=== PATIENT | female | born 1940 | race Two or more races ===

== ENCOUNTER 2025-01-25 16:48 | Emergency (ER) | payer MEDICAID, SELFPAY ==
[2025-01-25 16:49] VITALS: BMI 4639.8
[2025-01-25 17:57] VITALS: BP 153/68; PULSE 70; RESP 18; TEMP 36.7; O2SAT 95
--- NOTE | 2025-01-25 18:38 | XR_ITS ---
Examination: Tibia-Fibula, left , 2 views Technique: Tibia-fibula AP lateral 2 views Date and time of exam: January 25 20,025, 1901 hours INDICATIONS: Redness swelling and pain this week. FINDINGS: Severe osteopenia. No fracture. No cortical bone destruction. Soft tissue vascular calcification. IMPRESSION: No cortical bone destruction.
--- NOTE | 2025-01-25 18:38 | XR_ITS ---
Examination: CT brain head without contrast. 2-D sagittal coronal reconstructions Date and time of exam:January 25, 2025, 1853 hours, comparison June 16, 2005. INDICATIONS: Frequent falls with injury to the head, head pain CTDI: vol (mGy):46.7. DLP: (mGycm):958. Technique: Multiple CT axial sections of the brain have been obtained, 5 mm slice thickness. Contrast has not been administered. 2-D sagittal, coronal reconstructions have been obtained Low dose protocols were performed. One or more of the following dose reduction techniques were used; automated exposure control, adjustment of the mA and/or KV according to patient size, use of iterative reconstruction technique. Findings: No significant ventricular enlargement. Intra-axial or extra-axial hemorrhage density is not seen. No mass effect or midline shift Basal cisterns are not remarkable. Fourth ventricle is midline. Cranial vault intact. Chronic maxillary left sinusitis Impression: Negative for acute hemorrhage, mass effect or midline shift
--- NOTE | 2025-01-25 18:39 | XR_ITS ---
Examination: AP chest single view. TECHNIQUE: AP sitting portable chest single view. Date and time: January 25, 2025, 1908 hours INDICATIONS: Frequent falls this week. FINDINGS: Mild prominence left ventricle Lobulation left hemidiaphragm. No pneumothorax or pulmonary contusion. Prominent osteopenia. Clavicles ribs appear intact Impression : No pneumothorax or pulmonary contusion or hemothorax
--- NOTE | 2025-01-25 18:41 | PD.EDRME ---
Rapid Medical Screening Exam [facility] Arrival date/time: 01/25/25 16:48 84F with history of DM, afib, and HTN presents to ED with non-healing open wound on L lower leg for 2 weeks. Patient was put Keflex by PCP w/o improvement. Separately, patient has had frequent falls recently, but no obvious injuries. Chief Complaint: Skin/Abscess/Foreign Body Vital signs: Vital Signs Temperature 98.0 F 01/25/25 17:57 Pulse Rate 70 01/25/25 17:57 Respiratory Rate 18 01/25/25 17:57 Blood Pressure 153/68 H 01/25/25 17:57 Pulse Oximetry (%) 95 01/25/25 17:57 Oxygen Delivery Method Room Air 01/25/25 17:57
[2025-01-25 19:53] LABS: Sed Rate (ESR) 50 mm/hr (0-30)
[2025-01-25 19:56] LABS: Basophils # (Auto) 0.0 Thou/mm3 (0.0-0.2); Basophils % (Auto) 0 % (0-2.5); Eosinophils # (Auto) 0.0 Thou/mm3 (0.0-0.5); Eosinophils % (Auto) 0 % (0-10); Hematocrit 36.2 % (36.0-46.0); Hemoglobin 11.5 g/dL (12.0-16.0); Immature Granulocytes Auto 0.08 Thou/mm3 (0.00-0.00); Lymphocytes # (Auto) 1.3 Thou/mm3 (1.0-4.8); Lymphocytes % (Auto) 15 % (10-50); Mean Corpuscular HGB Conc 31.8 g/dl (31.0-37.0); Mean Corpuscular Hemoglobin 28.8 pg (25.0-35.0); Mean Corpuscular Volume 91 fL (80-100); Monocytes # (Auto) 0.4 Thou/mm3 (0.0-0.8); Monocytes % (Auto) 5 % (0-12); Neutrophils # (Auto) 6.6 Thou/mm3 (1.8-7.7); Neutrophils % (Auto) 78 % (37-80); Nucleated Red Blood Cell # 0.00 Thou/mm3 (0.00-0.00); Nucleated Red Blood Cell % 0 /100 WBC (0); Platelet Count 232 Thou/mm3 (140-440); RDW Standard Deviation 45.8 fL (36.4-46.3); Red Blood Count 4.00 Miln/mm3 (4.00-5.20); White Blood Count 8.4 Thou/mm3 (3.6-11.0)
[2025-01-25 20:21] LABS: Alanine Aminotransferase 25 U/L (10-49); Albumin, Serum 4.1 gm/dL (3.4-4.8); Albumin/Globulin Ratio 1.5 (1.2-2.2); Alkaline Phosphatase 124 U/L (46-116); Anion Gap 11 (7-16); Aspartate Amino Transferase 19 U/L (0-34); BUN/Creatinine Ratio 30 Ratio (12-20); Bilirubin,Total 0.3 mg/dL (0.3-1.2); Blood Urea Nitrogen 33 mg/dL (9-23); Calcium 9.8 mg/dL (8.3-10.6); Calcium (Corrected) 9.8 mg/dL (8.5-10.1); Carbon Dioxide 27.6 mMol/L (20.0-31.0); Chloride 104 mMol/L (98-107); Creatinine (Component) 1.1 mg/dL (0.6-1.3); Estimated Creatinine Clearance 30.8 mL/min (>60); Globulin 2.8 gm/dL (2.3-3.5); Glucose 224 mg/dL (74-106); Osmolality,Calculated 299 (275-295); Potassium 4.0 mMol/L (3.4-5.1); Sodium 143 mMol/L (136-145); Total Protein 6.9 gm/dL (5.7-8.2); eGFR 49 See Note
[2025-01-25 21:11] LABS: C-Reactive Protein 1.6 mg/dL (0.0-0.9)
--- NOTE | 2025-01-25 23:43 | PD.EDSKIN ---
ED Skin Abcess FB-RME/HPI General Chief complaint: Skin/Abscess/Foreign Body Stated complaint: WOUND LEFT LEG FOR 2 WEEKS Time Seen by Provider: 01/25/25 22:59 Arrival date/time: 01/25/25 16:48 RME / HPI RME / HPI narrative: 01/25/25 16:48 84F with history of DM, afib, and HTN presents to ED with non-healing open wound on L lower leg for 2 weeks. Patient was put Keflex by PCP w/o improvement. Separately, patient has had frequent falls recently, but no obvious injuries. DR. BOLTON MAIN ED EVALUATION: 84 y/o female with Hx of Type II DM presents with a non-healing open wound to the posterior left lower leg x 2 weeks. Patient hurt herself with her walker, causing the wound, then later had the wound picked at by chickens while outside. Patient is currently on Cephalexin. No other concerns or complaints expressed at this time. Related Data Home Medications ?Medication ?Instructions ?Recorded ?Confirmed docusate sodium 100 mg capsule 100 mg PO DAILY 11/15/20 11/15/20 ergocalciferol (vitamin D2) 1,250 1,250 mcg PO QWEEK 11/15/20 11/15/20 mcg (50,000 unit) capsule isosorbide mononitrate 30 mg 30 mg PO DAILY 11/15/20 11/15/20 tablet,extended release 24 hr lisinopril 40 mg tablet 40 mg PO DAILY 11/15/20 11/15/20 omeprazole 20 mg capsule,delayed 20 mg PO DAILY 11/15/20 11/15/20 release Previous Rx's ?Medication ?Instructions ?Recorded amoxicillin 875 mg-potassium 1 tab PO BID #5 tabs 11/20/20 clavulanate 125 mg tablet (Augmentin) aspirin 81 mg tablet,delayed 81 mg PO QDAY #30 tabs 11/20/20 release (Adult Low Dose Aspirin) sulfamethoxazole 800 1 tab PO BID #14 tabs 01/25/25 mg-trimethoprim 160 mg tablet (Bactrim DS) Allergies Allergy/AdvReac Type Severity Reaction Status Date / Time amlodipine Allergy Severe Rash Verified 01/25/25 16:52 Review of Systems Review of Systems Systems Reviewed: All systems reviewed, normal except as documented Past Medical History Past Medical History CARDIAC: Positive Cardiac Disorders and Hypertension RESPIRATORY: Positive Asthma MUSCULOSKELETAL: Positive Musculoskeletal Disorders and Arthritis ENT: Positive Deafness PSYCHO/SOCIAL: Positive Depression and Anxiety OTHER HISTORY: Positive Falls Family History FAMILY HISTORY: Positive Family Respiratory Disorders and Family Cancer Surgical History SURGICAL: Positive Hysterectomy ED Exam Narrative Physical exam: Generally patient is alert and in no obvious distress and [id number], heart regular rate and rhythm, lungs clear to auscultation equal bilaterally, abdomen soft nontender, extremities show 3+ pitting pedal edema from the feet up to the knees bilaterally. This is normal for the patient. To the posterior aspect of the left calf patient has a 3 to 4 cm circular moist wound with an erythematous border. Course Quality Measures none Orders Category Date Time Status CT head/brain wo con Stat Exams 01/25/25 18:38 Completed XR chest 1V portable Stat Exams 01/25/25 18:39 Completed XR tibia fibula LT 2V Stat Exams 01/25/25 18:38 Completed CBC Stat Lab 01/25/25 19:37 Completed CMP [Comprehensive Metabolic Panel] Stat Lab 01/25/25 19:37 Completed CRP [C-Reactive Protein] Stat Lab 01/25/25 19:37 Completed ESR [Sed Rate (ESR)] Stat Lab 01/25/25 19:37 Completed Vital Signs Vital signs: Vital Signs Temperature 98.0 F 01/25/25 17:57 Pulse Rate 70 01/25/25 17:57 Respiratory Rate 18 01/25/25 17:57 Blood Pressure 153/68 H 01/25/25 17:57 Pulse Oximetry (%) 95 01/25/25 17:57 Oxygen Delivery Method Room Air 01/25/25 17:57 Skin / Abscess / Foreign Body MDM Narrative MDM Narrative:: Scribe Attestation: I, Angela Morrison, am scribing for and in the presence of Dr. Bolton. Provider Notation: Although this document has been carefully reviewed, there may still be some phonetic and other typographical errors. These errors are purely grammatical due to imperfections in the software program and should not be construed in any way to? compromise the substance of the patient's medical care during this visit. Patient has been on cephalexin. I will add MRSA coverage with Bactrim. I interpreted all labs. X-ray of the left tibia and fibula was unremarkable. Patient data External records reviewed:: [facility] previous records (No recent ED records available for review.) Clinical information provided by:: patient and family (Daughter) Social determinants that could affect healthcare access:: none Patient has the following chronic illnesses:: Hypertension, Asthma, Arthritis, Deafness, Depression, Anxiety How is presenting disease/condition affected by chronic disease/condition?: exacerbated by Evaluation data The following diagnostics were reviewed and interpreted by me:: lab results and radiology exam(s) Lab and/or radiology exams considered but not ordered:: None Interpretation Summary: RADIOLOGY Chest X-Ray: FINDINGS: Mild prominence left ventricle Lobulation left hemidiaphragm. No pneumothorax or pulmonary contusion. Prominent osteopenia. Clavicles ribs appear intact Impression: No pneumothorax or pulmonary contusion or hemothorax Head/Brain CT: Findings: No significant ventricular enlargement. Intra-axial or extra-axial hemorrhage density is not seen. No mass effect or midline shift Basal cisterns are not remarkable. Fourth ventricle is midline. Cranial vault intact. Chronic maxillary left sinusitis Impression: Negative for acute hemorrhage, mass effect or midline shift Tiba/Fibula X-Ray: FINDINGS: Severe osteopenia. No fracture. No cortical bone destruction. Soft tissue vascular calcification. IMPRESSION: No cortical bone destruction. Medications / Prescriptions Medications or Prescriptions considered but not ordered:: None Medication administrations:: See above if any Consultations Consultation(s) initiated? (list below): No Diagnosis Skin/Abscess Differential Diagnosis: abscess of skin or subcutaneous tissue, viral exanthem, dermatophytosis, urticaria, herpes zoster, cellulitis, insect bites and contact dermatitis Most likely diagnosis given after review of the tests above:: None Admission Indicated Admission indicated?: not indicated Explain why admission is indicated or not indicated:: Patient does not meet admission criteria. Admission Request Was there a request for admission?: No Disposition Plan Disposition Plan: Discharge Discharge Attestation Discharge Attestation: The patient and all family members were given an opportunity to ask questions and understood the discharge instructions. Discharge instructions specifically effects, indications for sooner follow up or return to the emergency department, and the expected course of current diagnosis. Patient condition: Stable Discharge Plan Plan Patient Disposition: HOME (Self Care) Prescriptions/Referrals Prescriptions/Med Rec: New sulfamethoxazole-trimethoprim [Bactrim DS] 800-160 mg tablet 1 tab PO BID Qty: 14 0RF No Action docusate sodium 100 mg capsule 100 mg PO DAILY Patient Comments: TOME 1 C PSULA POR V A ORAL TODOS LOS D CUANDO SEA NECESARIO isosorbide mononitrate 30 mg tablet extended release 24 hr 30 mg PO DAILY Patient Comments: TOME ASHA TABLETA TODOS LOS D EN LA MA BARON ergocalciferol (vitamin D2) 1,250 mcg (50,000 unit) capsule 1,250 mcg PO QWEEK Patient Comments: TOME 1 C PSULA POR V A ORAL SEMANALMENTE lisinopril 40 mg tablet 40 mg PO DAILY Patient Comments: TOME ASHA TABLETA TODOS LOS D omeprazole 20 mg capsule,delayed release(DR/EC) 20 mg PO DAILY Patient Comments: TOME 1 C PSULA POR V A ORAL TODOS LOS D 30 MINUTOS ANTES DE DESAYUNO aspirin [Adult Low Dose Aspirin] 81 mg tablet,delayed release (DR/EC) 81 mg PO QDAY Qty: 30 0RF amoxicillin-pot clavulanate [Augmentin] 875-125 mg tablet 1 tab PO BID Qty: 5 0RF Referrals: No Primary/Family,Physician [Primary Care Provider] - In 1 week Problem List Clinical Impression: Infected wound Patient/Caregiver Discharge Instructions Additional Instructions: Continue current antibiotics. Bactrim as prescribed. Follow-up with your doctor. Return to ER as needed or if condition worsens. He will take the antibiotics 3 to 4 days to show improvement in the wound. Print Language: Slovak Stand Alone Forms: Ericka Award Info., Patient Portal Info Letter
[2025-01-26 00:20] VITALS: BP 132/76; PULSE 75; RESP 18; TEMP 37; O2SAT 95
== END 2025-01-26 00:21 | disposition home or self-care (01) ==
PROVIDERS: Physician Assistant; Emergency Provider Emergency Medicine
DX: S81.802A Unspecified open wound, left lower leg, initial encounter (principal); L08.9 Local infection of the skin and subcutaneous tissue, unspecified; X58.XXXA Exposure to other specified factors, initial encounter; I10 Essential (primary) hypertension; E11.9 Type 2 diabetes mellitus without complications; I48.91 Unspecified atrial fibrillation; J45.909 Unspecified asthma, uncomplicated; M19.90 Unspecified osteoarthritis, unspecified site; F32.A Depression, unspecified; F41.9 Anxiety disorder, unspecified; Z91.81 History of falling
CPT/HCPCS: 36415; 70450; 71045; 73590; 80053; 85025; 85652; 86140; 99283